=== PATIENT | male | born 1945 | race Caucasian/White ===

== ENCOUNTER 2018-11-21 14:50 | Emergency (ER) | payer MEDICARE ==
[2018-11-21 15:20] VITALS: BP 162/79
[2018-11-21] MEDS ORDERED: DOXYcycline CAP(*) 100 MG PO ONE (15:23)
--- NOTE | 2018-11-21 15:23 | UC ---
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--erythema but now bulls eye at site of tick bite - History of Current Complaint Chief Complaint: UCGeneralIllness Time Seen by Provider: 11/21/18 15:08 Stated Complaint: TICK BITE Hx Obtained From: Patient Onset/Duration: Sudden Onset, Lasting Days - 2 Skin Exposure Onset/Duration: Days Ago - 2 Timing: Constant Pain Scale Used: 0-10 Numeric Location: Discrete Character: Redness Aggravating Factor(s): Nothing Associated Signs & Symptoms: Positive: Negative Related History: Insect Bite/Sting - Allergy/Home Medications Allergies/Adverse Reactions: Allergies Allergy/AdvReac Type Severity Reaction Status Date / Time typhoid vaccine Allergy Anaphylatic Verified 11/21/18 15:14 Shock Home Medications: Home Medications Tadalafil [Cialis] 10 mg PO PRN 11/21/18 [History] PMH/Surg Hx/FS Hx/Imm Hx Endocrine History: Hypothyroidism, Dyslipidemia Cardiovascular History: Hypertension - Family History Known Family History: Positive: None - Social History Occupation: Retired Lives: With Family Alcohol Use: None Substance Use Type: None Smoking Status (MU): Never Smoked Tobacco Review of Systems All Other Systems Reviewed And Are Negative: Yes Constitutional: Positive: Negative Skin: Positive: Other - lrft anterior chest wall erythema at site of tick removal Eyes: Positive: Negative ENT: Positive: Negative Respiratory: Positive: Negative Cardiovascular: Positive: Negative Gastrointestinal: Positive: Negative Genitourinary: Positive: Negative Motor: Positive: Negative Neurovascular: Positive: Negative Musculoskeletal: Positive: Negative Neurological: Positive: Negative Psychological: Positive: Negative Is Patient Immunocompromised?: No Physical Exam Triage Information Reviewed: Yes Appearance: Well-Appearing, No Pain Distress, Well-Nourished Vital Signs Reviewed: Yes Eye Exam: Normal Eyes: Positive: Conjunctiva Clear ENT Exam: Normal ENT: Positive: Normal ENT inspection, Hearing grossly normal, Pharynx normal. Negative: Trismus, Muffled voice, Hoarse voice Dental Exam: Normal Neck exam: Normal Neck: Positive: Supple, Nontender Respiratory Exam: Normal Respiratory: Positive: Chest non-tender, No respiratory distress, No accessory muscle use Cardiovascular Exam: Normal Cardiovascular: Positive: RRR, Pulses Normal, Brisk Capillary Refill Musculoskeletal Exam: Normal Musculoskeletal: Positive: Strength Intact, ROM Intact, No Edema Neurological Exam: Normal Neurological: Positive: Alert, Muscle Tone Normal Psychological Exam: Normal Skin Exam: Normal Skin: Positive: Other - erythema left anterior chest wall at site of tick bute no bulls eye rash Course/Dx - Course Course Of Treatment: Doxycycline dose times one now, monitor for s/s of Lyme report to PCP or return for re-evaluation - Diagnoses Provider Diagnosis: Risk of exposure to Lyme disease, Tick bite of chest wall, Hypertension Discharge - Sign-Out/Discharge Documenting (check all that apply): Patient Departure All imaging exams completed and their final reports reviewed: No Studies - Discharge Plan Condition: Stable Disposition: HOME Patient Education Materials: Lyme Disease (ED), Tick Bite (ED), Hypertension ( ED) Referrals: Oscar Leija MD [Primary Care Provider] - 2 Weeks - Billing Disposition and Condition Condition: STABLE Disposition: Home
== END 2018-11-21 15:33 | disposition home or self-care (01) ==
LOC: UCEAST 14:50
DX: S20.362A Insect bite (nonvenomous) of left front wall of thorax, initial encounter (principal); W57.XXXA Bitten or stung by nonvenomous insect and other nonvenomous arthropods, initial encounter; Y92.9 Unspecified place or not applicable; I10 Essential (primary) hypertension; E03.9 Hypothyroidism, unspecified; E78.5 Hyperlipidemia, unspecified; Z88.7 Allergy status to serum and vaccine
CPT/HCPCS: 99212; A9270-GY; G0463

== ENCOUNTER → 2019-01-01 07:47 | Day surgery (SDC) | payer MEDICARE ==
[~2019-01-01 07:47] MED LIST: Buffered Lidocaine 1% SYRIN* 1 ML/SYRINGE INTRADERM ONE; Bupivacaine 0.5% W/EPI SDV* 30 ML VIAL ONE; Dexamethasone IV* 4 MG/ML 1 ML (4 MG) ONE; DiMENhydriNATE IV* 50 MG/ML VIAL IV PUSH PRN; HYDROmorphone INJ1* 1 MG/ML SYRINGE IV PRN; Ketorolac INJ* 30 MG/ML 1 ML VIAL ONE; Lactated Ringers 1000 ML Bag* 1,000 ML IV SCH; Lidocaine 1% INJ* 10 MG/ML 30 ML SDV ONE; Midazolam* 1 MG/ML 2 ML VIAL (2 MG) ONE; Midazolam* 1 MG/ML 5 ML VIAL (5 MG) ONE; Naloxone* 0.4 MG/ML 1 ML VIAL IV PRN; Ondansetron INJ* 2 MG/ML VIAL IV PRN; Ondansetron INJ* 2 MG/ML VIAL ONE; Propofol* 10 MG/ML 20 ML BTL ONE; ceFAZolin 2 GM in NS PREMIX(*) 2 GM/100 ML BAG IVPB ONE; fentaNYL* 50 MCG/ML 2 ML VIAL (100 MCG VIAL) IV PRN; fentaNYL* 50 MCG/ML 2 ML VIAL (100 MCG VIAL) ONE; oxyCODONE/Acetamin 5/325 MG* TAB PO PRN
[2019-01-01 12:24] VITALS: BP 146/79
--- NOTE | 2019-01-01 12:28 | OP ---
DATE OF OPERATION: 01/01/19 [facility] DATE OF : 43 SURGEON: Sandoval Estrella MD. RADIOLOGICAL DEFENSE OFFICER: Nia James NP. ANESTHESIOLOGIST: Dr. Drake. ANESTHESIA: Local with monitored anesthesia care. PRE-OP DIAGNOSIS: Right inguinal hernia. POST-OP DIAGNOSIS: Right indirect inguinal hernia. OPERATIVE PROCEDURE: Open repair with mesh of the right indirect inguinal hernia. ESTIMATED BLOOD LOSS: Minimal. IV FLUIDS: 1 L of crystalloid. SPECIMENS: None. WOUND CLASSIFICATION: I. COMPLICATIONS: None. DRAINS: None. DESCRIPTION OF PROCEDURE: Written informed consent was obtained, the right groin was marked with indelible ink and preoperative antibiotics were administered. The patient was taken to the operating room, placed in the supine position. Sequential compression devices and a warming blanket were applied. Anesthesia was administered and the right lower abdomen and right groin were prepped and draped in the usual sterile fashion. Time-out verification was completed. A 1% lidocaine mixed with 0.25% Marcaine was then infiltrated extensively in the right groin, and an oblique incision was made and then carried down through the Solange's fascia to the external oblique aponeurosis. This aponeurosis was then opened in the direction of its fibers to expose the underlying spermatic cord and inguinal floor. The cord structures were encircled with 0.25 inch [place] drain at the pubic tubercle. Careful evaluation revealed the direct space to be intact without evidence of hernia. Careful evaluation of the spermatic cord showed a rather large retroperitoneal lipoma extending down to a very patulous internal ring. This was from the cord structures up into the ring and reduced without difficulty. Care was then taken to evaluate the remaining cord contents. The vas deferens was identified and protected from injury. I appreciated no indirect inguinal hernia sac; however, this was an indirect hernia with a large patulous internal ring. Next, the ProGrip Bard precut mesh was then placed to cover both the direct and indirect space with reconstruction of the internal ring nicely. This was sutured to the pubic tubercle medially without 0 Vicryl suture and sutured in two areas to the inguinal ligament inferiorly with simple sutures. The remainder of the mesh was adherent to the conjoint tendons superiorly and the musculature laterally. Hemostasis was assured. Additional Marcaine was infiltrated. The external oblique aponeurosis was closed with a running 3-0 Vicryl suture. The Solange's fascia was closed with a running 3-0 Vicryl suture. The skin was approximated with a subcuticular 4-0 Vicryl suture. Steri-Strips were applied. Sterile dressing was then placed. The patient tolerated the procedure well, was taken to the recovery room in stable condition. [id number]/[facility] #: [id number] RADHA
== END | disposition home or self-care (01) ==
LOC: OR 07:47
PROVIDERS: ATTEND Surgery
DX: K40.90 Unilateral inguinal hernia, without obstruction or gangrene, not specified as recurrent (principal); I10 Essential (primary) hypertension; E03.9 Hypothyroidism, unspecified; R73.01 Impaired fasting glucose; E78.00 Pure hypercholesterolemia, unspecified; N40.0 Benign prostatic hyperplasia without lower urinary tract symptoms
CPT/HCPCS: C1781; J0690; J1100; J1885; J2250; J2405; J2704; J3010